=== PATIENT | male | born 1955 | race Caucasian/White ===

== ENCOUNTER → 2019-02-12 06:20 | Outpatient (CLI) | payer OTHER, SELFPAY ==
--- NOTE | 2019-02-11 16:20 | RAD_ITS ---
STUDY: X-RAY - ORBITS REASON FOR EXAM: Male, 64 years old. This study is being performed as a clearance examination for exclusion of orbital metal, prior to the performance of an MRI examination. TECHNIQUE: 2 frontal view(s) of the orbits were obtained. COMPARISON: None. FINDINGS: Normal bilateral orbits without a metallic orbital foreign body. Normal visualized facial bones. Normal paranasal sinuses. The soft tissue structures are unremarkable. RAD/Orbits for Foreign Body IMPRESSION: No demonstrated metallic orbital foreign body. The patient is cleared for an MRI examination. Electronically Signed: Saad Lassiter MD at 16:33 EDT , Service support ,
--- NOTE | 2019-02-12 06:36 | MRI_ITS ---
STUDY: MRI BRAIN WITH AND WITHOUT CONTRAST (ATTENTION INTERNAL AUDITORY CANALS - I.A.C.'s) REASON FOR EXAM: Male, 64 years old. hearing loss left ear. TECHNIQUE: Standardized multiplanar fat and water weighted pulse sequences were obtained. 17 IV Dotarem was administered for the contrast portion of the examination. COMPARISON: None. FINDINGS: Normal bilateral temporal bones. Normal bilateral internal auditory canals. There is 2 mm focus of possible enhancement at the intracanicular 7th and 8th cranial nerve complex (axial image #6 series 13). This is not well seen on other sequences. The right seventh and eighth complex is unremarkable. Normal bilateral cochlea, vestibules and semicircular canals. There is mild cerebral atrophy with widening of the extra-axial spaces and ventricular dilatation. There are multiple white matter hyperintensities, distributed throughout the deep white matter tracts of the cerebral hemispheres, consistent with mild chronic white matter ischemic changes. Normal bilateral basal ganglia. Normal thalami. Normal flow voids within the major intracranial circulation suggesting patency by spin echo criteria. Normal venous enhancement. There is no enhancing intra-axial or extra-axial abnormality. There is no extra-axial fluid accumulation. Normal sella turcica, pituitary gland, infundibular stalk, optic chiasm and hypothalamus. Normal tectal plate and pineal gland. Normal midbrain, hanh and medulla. Normal cerebellum. Normal basal cisterns. There is moderate left maxillary sinus disease MRI/Brain W/WO Contrast IMPRESSION: 2 mm focus of possible enhancement on the left. Vestibular schwannoma is not excluded. Follow-up in 12 months can be obtained. Electronically Signed: Sonu Aguilar MD at 9:24 EDT Tel , Service support ,
== END ==
PROVIDERS: Family Provider Family Medicine; PCP Family Medicine; Referring Provider Otolaryngology; Visit Provider Otolaryngology
DX: H91.22 Sudden idiopathic hearing loss, left ear (principal)
CPT/HCPCS: 70030; 70553; A9575

== ENCOUNTER → 2021-03-24 08:00 | Outpatient (CLI) | payer MEDICARE, BC, SELFPAY ==
--- NOTE | 2021-03-24 | IMM_PTH ---
PATIENT: JERRELL GRAMAJO LOC: [facility] U#:[id number] AGE/SX: 70/M ROOM: RE03/24/[address]: Dr. Sylvester Finch MD : 1955 BED: DIS: SPEC #: [id number] RECD: 03/29/21 12:20 STATUS: LEXI REChristine #: [id number] LESLI: 03/24/21 00:[address]: Sylvester Finch DEPT: IMMUNOHISTOCHEMISTRY RECD BY: Tahir Alcantar ENTERED: 03/29/21 12:22 SP TYPE: IMMUNO OTHR DR: Dr. Maddie Mills MD Tissues: PROSTATE BIOPSY Procedures: 34BE12 (add) P40 (add) 34BE12 (initial) S-100 (add) PHYSICIAN & INSTITUTION [place] [id number] SPECIMEN INFORMATION: Tissue Source: C. Right base, prostate, E. Left mid, prostate Clinical Info: R97.20 Specimen Number: [id number] CPT code: 23869, 30109 x4 METHODOLOGY: Deparaffinized sections of prefer/formalin-fixed tissue or PAP/DQ stained slides are incubated with monoclonal/polyclonal antibodies/oligonucleotide probes. Localization is made via biotin free immunoperoxidase method. Appropriate controls are performed and reacted as expected. Results on target cell population are indicated in the following table: RESULTS: ANTIBODY / CLONE RESULT Block C 34BE12 (34BE12) positive P40 (BC28) positive Block E 34BE12 (34BE12) negative P40 (BC28) negative S-100 (4C4.9) negative These tests were developed and their performance characteristics determined by [facility]. They may not have been cleared or approved by the U.S. Food and Drug Administration. The FDA has determined that such clearance or approval is not necessary. The above immunohistochemical/dualISH markers are ordered and reviewed by the Pathologist. INTERPRETATION: C. Right prostate base, needle core biopsy: -Benign prostatic tissue E. Left mid prostate, core biopsy: -Adenocarcinoma -No evidence of perineural invasion AM:rip 03/30/21
--- NOTE | 2021-03-24 08:00 | PROSBIL_PTH ---
PATIENT: JERRELL GRAMAJO LOC: [facility] U#:[id number] AGE/SX: 70/M ROOM: RE03/24/[address]: Dr. Sylvester Finch MD : 1955 BED: DIS: SPEC #: [id number] RECD: 03/24/21 16:52 STATUS: LEXI RUBÉN #: [id number] LESLI: 03/24/21 08:[address]: Sylvester Finch DEPT: SURGICAL PATHOLOGY RECD BY: Vanessa Turner ENTERED: 03/25/21 09:38 SP TYPE: PROST BX SOREN DR: Dr. Maddie Mills MD Tissues: A - PROSTATE RIGHT B - PROSTATE RIGHT C - PROSTATE RIGHT D - PROSTATE LEFT E - PROSTATE LEFT F - PROSTATE LEFT Procedures: PROSTATE BX HEADER OPERATION: Prostate biopsy PRE-OP DIAGNOSIS: R97.20 TISSUE SUBMITTED: A - Right apex, B - Right mid, C - Right base, D - Left apex, E - Left mid, F - Left base MICROSCOPIC DIAGNOSIS A. Right prostate, apex, core biopsy: Adenocarcinoma [place] grade: 6 (3+3) Maximal length: 2.5mm Number of cores involved: 1/1 Percent of core(s) involved: 15% Perineural invasion: Not Present. B. Right prostate, mid, core biopsy: Focal high-grade PIN. C. Right prostate, base, core biopsy: Focal high-grade PIN. D. Left prostate, apex, core biopsy: Adenocarcinoma [place] grade: 7(3+4) Maximal length: 6mm Number of cores involved: 1/1 Percent of core(s) involved: 50% Perineural invasion: Not Present. E. Left prostate, mid, core biopsy: Adenocarcinoma [place] grade: 7(3+4) Maximal length: 6.5mm Number of cores involved: 2/2 Percent of core(s) involved: 65% Perineural invasion: Not Present. F. Left prostate, base, core biopsy: Benign prostatic tissue. COMMENT C & E. Immunohistochemistry ([id number]) supports the diagnosis. MICROSCOPIC DESCRIPTION Slides are reviewed. GROSS DESCRIPTION A - Received is one container designated prostate, right apex. The specimen consists of one elongated fragment of light khan-white soft tissue measuring 1.5 cm in length and 0.1 cm in diameter. The specimen is totally submitted in one cassette. B - Received is one container designated prostate, right mid. The specimen consists of two elongated fragments of light khan-white soft tissue each measuring 1.5 cm in length and 0.1 cm in diameter. The specimen is totally submitted in one cassette. C - Received is one container designated prostate, right base. The specimen consists of one elongated fragment of light khan-white soft tissue measuring 1.5 cm in length and 0.1 cm in diameter. The specimen is totally submitted in one cassette. D - Received is one container designated prostate, left apex. The specimen consists of two elongated fragments of light khan-white soft tissue each measuring 1 cm in length and 0.1 cm in diameter. The specimen is totally submitted in one cassette. E - Received is one container designated prostate, left mid. The specimen consists of two elongated fragments of light khan-white soft tissue each measuring 1 cm in length and 0.1 cm in diameter. The specimen is totally submitted in one cassette. F - Received is one container designated prostate, left base. The specimen consists of one elongated fragment of light khan-white soft tissue measuring 1.5 cm in length and 0.1 cm in diameter. The specimen is totally submitted in one cassette. / AM:galindo 03/25/2021 TC:0 CPT: G0146
== END ==
PROVIDERS: PCP Family Medicine; Referring Provider Urology; Visit Provider Urology
DX: R97.20 Elevated prostate specific antigen [PSA] (principal)
CPT/HCPCS: 88305; 88341; 88342; G0416

== ENCOUNTER → 2021-04-04 07:20 | Outpatient (CLI) | payer MEDICARE, BC, SELFPAY ==
--- NOTE | 2021-04-04 07:23 | CT_ITS ---
STUDY: CT ABDOMEN AND PELVIS WITH CONTRAST REASON FOR EXAM: Male, 66 years old. NODULAR PROSTATE W/O LOWER UTI SYMPTOMS RADIATION DOSAGE (If Supplied By Facility): CTDIvol = ( 13.20 ) mGy, DLP = ( 1054.49 ) mGycm TECHNIQUE: Transaxial images were obtained from the dome of the diaphragm to the symphysis pubis without oral contrast. IV 100mL Isovue-300 was administered. Sagittal and coronal images were reconstructed. Individualized dose optimization techniques were used for this CT. COMPARISON: None. FINDINGS: The visualized lung bases are unremarkable. Dual-chamber pacemaker seen. There is decreased attenuation of the liver consistent with steatosis. Normal gallbladder and extrahepatic biliary system. Normal spleen. Normal pancreas. Normal bilateral adrenal glands. Normal right kidney. Normal left kidney. There is a small hiatal hernia. Normal small intestine. Normal colon. The appendix is visualized and appears normal. There is diffuse atherosclerotic calcification of the abdominal aorta and its major visceral branches, without a demonstrated aneurysm. Normal inferior vena cava. Normal retroperitoneum. Normal urinary bladder. There is enlargement of the prostate gland. It measures 4.1 cm by 4.6 cm. Within it, there is a 2.4 cm x 3.1 cm rounded nodule of increased density. Normal abdominal wall. There are mild degenerative changes of the visualized lumbar spine. CT/Abdomen/Pelvis WITH Contrast IMPRESSION: Prostatic enlargement with the 2.4 cm x 3.1 some around the nodule of increased density in the central portion of the prostate. Fatty infiltration of the liver. Electronically Signed: Sly Mckeon MD at 11:08 EDT , Service support ,
[2021-04-04 07:36] LABS: CREATININE FINGERSTICK 0.9 mg/dL (0.70-1.30); EGFR FINGERSTICK > 60.0000 mL/min (>60)
== END ==
PROVIDERS: PCP Family Medicine; Referring Provider Urology; Visit Provider Urology
DX: N40.2 Nodular prostate without lower urinary tract symptoms (principal)
CPT/HCPCS: 74177; Q9967

== ENCOUNTER → 2021-04-05 08:25 | Outpatient (CLI) | payer MEDICARE, BC, SELFPAY ==
--- NOTE | 2021-04-05 08:26 | NM_ITS ---
CLINICAL: Male, 66 years old. NODULAR PROSTATE W/OUT SYMPTOMS -- 1997 TESTICULAR CANCER WHOLE BODY NUCLEAR BONE SCAN TECHNIQUE: Following the IV administration of 24 mCi of Tc MDP, whole body bone imaging was performed with a gamma camera following a three hour delay. FINDINGS: There is a normal concentration of radiopharmaceutical throughout the axial and appendicular skeletal system. Focal increased uptake is seen in the left shoulder suggestive of a degenerative change. Minimal increase is also seen at the first carpometacarpal joints of both hands. NM/Bone Scan Whole Body IMPRESSION: No evidence of bony metastasis. Electronically Signed: Sly Mckeon MD at 11:30 EDT , Service support ,
== END ==
PROVIDERS: PCP Family Medicine; Referring Provider Urology; Visit Provider Urology
DX: N40.2 Nodular prostate without lower urinary tract symptoms (principal)
CPT/HCPCS: 78306; A9503

== ENCOUNTER → 2021-05-04 07:22 | Outpatient (CLI) | payer MEDICARE, BC, SELFPAY ==
--- NOTE | 2021-05-04 07:27 | MRI_ITS ---
STUDY: MR PELVIS WITH T WITHOUT CONTRAST REASON FOR EXAM: Male, 66 years old. ELEVATED PROSTATE SPECIFIC ANTIGEN TECHNIQUE: Standardized fat and water weighted pulse sequences were obtained in all 3 orthogonal planes, pre-and post contrast administration. with and without IV 18 cc Dotarem contrast material was administered intravenously for the contrast portion of the examination. COMPARISON: CT 04/04/2021. FINDINGS: Normal urinary bladder. Normal visualized colon. Benign-appearing inguinal lymph nodes. Prostate gland: Prostate gland is diffusely heterogeneous. No discrete enhancing nodules. The anterior fibromuscular stroma and central zone appear intact. The central gland demonstrates normal signal characteristics. Rectum is unremarkable. Levator ani muscle is not disrupted. The distal urethra is surrounded by the low T2 signal intensity muscle which is the external urethral sphincter as noted on the coronal images. The penile bulb is embraced by an intact inferomedial levator ani muscle. No areas of abnormal enhancement. Normal visualized neurovascular bundles. There is no pelvic fluid. There is no pelvic mass lesion or lymphadenopathy. There is diffuse atherosclerotic calcification of the pelvic arteries. Normal osseous structures. Normal abdominal wall. MRI/Pelvis W/WO Contrast IMPRESSION: No evidence of neoplasm on this unenhanced and enhanced MRI of the Prostate. Electronically Signed: Neto Rangel MD at 18:14 EDT , Service support ,
[2021-05-04 07:56] VITALS: BP 169/93; PULSE 75; RESP 16; O2SAT 97
[2021-05-04 08:10] VITALS: BP 157/87; PULSE 75; RESP 75; O2SAT 94
[2021-05-04 08:28] VITALS: BP 157/87; PULSE 75; RESP 75; O2SAT 92
[2021-05-04 08:36] VITALS: BP 159/87; PULSE 75; RESP 16; O2SAT 96
[2021-05-04 08:50] VITALS: BP 148/84; PULSE 75; RESP 16; O2SAT 93
[2021-05-04 08:57] VITALS: PULSE 75; RESP 18; O2SAT 92
== END ==
PROVIDERS: PCP Family Medicine; Referring Provider Urology; Visit Provider Urology
DX: R97.20 Elevated prostate specific antigen [PSA] (principal)
CPT/HCPCS: 72197; A9575

== ENCOUNTER 2021-05-11 05:31 | Day surgery (SDC) | payer MEDICARE, BC, SELFPAY ==
--- NOTE | 2021-05-05 13:13 | EKG12_ITS ---
Test Reason : PREOP Blood Pressure : / mmHG Vent. Rate : 064 BPM Atrial Rate : 064 BPM P-R Int : 172 ms QRS Dur : 194 ms QT Int : 470 ms P-R-T Axes : 066 -75 100 degrees QTc Int : 484 ms Atrial-sensed ventricular-paced rhythm Abnormal ECG Confirmed by SANDY OLIVARES, THEA ([id number]), editor house organ MEELY HUMPHREY ([id number]) on 05/10/2021 6:44:50 AM Referred By: Sylvester Finch Confirmed By:THEA DELGADO MD
--- NOTE | 2021-05-05 13:25 | RAD_ITS ---
STUDY: X-RAY CHEST REASON FOR EXAM: Male, 66 years old. PREOP/HX OF RADIATION THERAPY TECHNIQUE: Frontal and lateral views of the chest COMPARISON: None. FINDINGS: There is a benign calcified granuloma in the right midlung zone. Pacemaker is present in the right upper chest with leads terminating in the right atrium and right ventricle. The lungs are clear and expanded. There is no demonstrated pleural abnormality. Normal size heart. Normal mediastinum and rosalba. Normal visualized pulmonary arteries. Normal visualized aortic arch and descending thoracic aorta. Normal visualized thoracic spine. Normal visualized ribs, clavicles, and shoulders. There is no demonstrated abnormality of the visualized soft tissue structures of the upper abdomen. RAD/Chest PA and Lateral IMPRESSION: Normal x-ray examination of the chest. Electronically Signed: Lesvia Lugo MD at 17:31 EDT Tel , Service support ,
[2021-05-05 14:54] LABS: Hematocrit 39.6 % (40-54); Hemoglobin 14.4 g/dL (13.0-16.5); Mean Corp Hgb Conc 36.4 g/dL (32-36); Mean Corpuscular Hgb 34.1 pg (27.0-32.0); Mean Corpuscular Volume 93.8 fL (80-94); Mean Platelet Vol. 9.5 fl (6.2-12.0); Platelet Count 207 K/mm3 (150-450); RBC Distribution Width CV 12.3 % (11.6-14.6); RBC Distribution Width SD 42.2 fl (35.1-43.9); Red Blood Count 4.22 M/mm3 (4.6-6.2); White Blood Count 8.4 K/mm3 (4.4-11.0)
[2021-05-05 15:17] LABS: Anion Gap 7 (5-15); BUN 16 mg/dL (7-18); BUN/Creat Ratio 22.1 RATIO (10-20); Calcium,Total 8.8 mg/dL (8.5-10.1); Chloride 107 mmol/L (98-107); Creatinine, Serum 0.72 mg/dL (0.70-1.30); EST Glomerular Filtration Rate 115 mL/min (>60); Est Glom Filt Rate - Afr Amer 139 mL/min (>60); Glucose 200 mg/dL (74-106); Sodium Level 137 mmol/L (136-145)
[2021-05-05 15:25] LABS: Hemoglobin A1c 6.8 % (3.8-5.6)
[2021-05-11] VITALS (12 sets, daily range): BP systolic 125–169; BP diastolic 69–94; PULSE 62–90; RESP 16–18; TEMP 36.1–36.6; O2SAT 93–99; BMI 26.6
[2021-05-11] MEDS: Lactated Ringers 1,000 ML 100 ML IV ×2 (06:26→10:30)
[2021-05-11 06:36] LABS: Bedside Glucose 163 mg/dL (70-110)
--- NOTE | 2021-05-11 07:30 | PROST_PTH ---
PATIENT: JERRELL GRAMAJO LOC: [facility] [place] U#:[id number] AGE/SX: 66/M ROOM: RE05/11/[address]: Dr. Sylvester Finch MD : 1955 BED: DIS: 05/11/2021 SPEC #: [id number] RECD: 05/11/21 12:05 STATUS: LEXI REChristine #: [id number] LESLI: 05/11/21 07:[address]: Sylvester Finch DEPT: SURGICAL PATHOLOGY RECD BY: Vanessa Turner ENTERED: 05/11/21 12:40 SP TYPE: PROSTATE OTHR DR: MD Dr. Popeye Rios MD Tissues: A - Lymph node of pelvis, NOS B - Lymph node of pelvis, NOS C - Soft tissues, NOS D - Soft tissues, NOS E - Prostate, NOS Procedures: Surgery Specimen Level IV Surgery Specimen Level V Surgery Specimen Level HEADER OPERATION: Lap robotic prostatectomy PRE-OP DIAGNOSIS: Malignant neoplasm of prostate TISSUE SUBMITTED: A ? Left pelvic lymph node, B ? Right pelvic lymph node, C ? Fat over prostate, D ? Apical margin of prostate, E - Prostate MICROSCOPIC DIAGNOSIS A. Left pelvic lymph node, biopsy: One lymph node, negative for metastatic carcinoma. B. Right pelvic lymph node, biopsy: One lymph node, negative for metastatic carcinoma. C. Fat over prostate: Negative for carcinoma. D. Apical margin of prostate: Positive for prostatic adenocarcinoma. See comment. E. Prostate, radical prostatectomy: Adenocarcinoma. See cancer summary in the comment section. SJ:galindo 05/13/2021 COMMENT D. The tumor shows [place] grade 3+3=6 pattern and measures ~2 mm in greatest dimension. PROSTATE CANCER (RADICAL) SUMMARY: Procedure: Radical Prostatectomy Prostate Size: Weight: 49 gm Size: 4.5 cm transversely, 3.5 cm anterior-posteriorly and 4 cm craniocaudally Histologic type: Acinar adenocarcinoma Histologic grade: grade group 2 (Richfield score 3+4=7) Tumor Quantitation: Estimated percentage of prostate involved by tumor - ~30% Tumor size ? The tumor involves both right and left lobe, apical mid and basal portion of the prostate, predominantly central portion of the specimen. Tumor in the right and left lobe measures approximately 3 x 1.5 x 1.5 cm. Extraprostatic Extension: Not identified Urinary Bladder Neck Invasion: Not identified Seminal Vesicle Invasion: Not identified Lymphvascular Invasion: Not identified Perineural Invasion: Present Margins: Involved by invasive carcinoma Limited (<3 mm) Location of positive margin - apical and anterior margin Rich[place] pattern at positive margin ? pattern 3 Regional Lymph Nodes: Number of lymph nodes involved by carcinoma: 0 Total Number of Lymph Nodes Examined: 2 Treatment Effect: No known presurgical therapy Distant metastasis: Not applicable Additional Pathologic Findings: Focal high-grade prostatic intraepithelial neoplasia (HGPIN). - Chronic inflammation. - Benign prostatic hyperplasia, glandular type Ancillary studies: Not performed PATHOLOGIC STAGE: pT2 pN0 pMx The above summary is in compliance with [employer] [place] [employer] (CAP) Cancer Protocols Checklist and [place] [employer] Committee on Cancer (AJCC), Staging Manual, 8th Ed. Please make reference to previous specimen ([id number]) right prostate, apex, core biopsy with diagnosis of adenocarcinoma and left prostate, apex and mid, core biopsies with diagnosis of adenocarcinoma. Case has been reviewed in consultation with Dr. Cool who concurs with the above diagnosis. IDC:AM MICROSCOPIC DESCRIPTION Slides are reviewed. GROSS DESCRIPTION A - Received in fixative is one container labeled with the patient's name and designated left pelvic lymph node. The specimen consists of an irregular piece of yellow adipose tissue measuring 4 x 2 x 1 cm. One nodule consistent with lymph node is identified. The entire specimen is submitted in two cassettes as follows: 1 ? one bisected lymph node, 2 ? rest of the specimen. / SJ:rg 05/11/21 B - Received in fixative is one container labeled with the patient's name and designated right pelvic lymph node. The specimen consists of a piece of yellow adipose tissue measuring 2 x 2 x 0.5 cm. No obvious lymph node is identified. The specimen is bisected and submitted entirely in one cassette. / SJ:rg 05/11/21 C - Received in fixative is one container labeled with the patient's name and designated fat over prostate. The specimen consists of an irregular piece of yellow adipose tissue measuring 2 x 1.5 x 0.3 cm. The entire specimen is submitted in one cassette. / SJ:rg 05/11/21 D - Received in fixative is one container labeled with the patient's name and designated apical margin of prostate. The specimen consists of two pieces of pink-red soft tissue measuring in aggregate 1 x 0.7 x 0.2 cm. The entire specimen is submitted in one cassette. / :rg 05/11/21 E - Received in fixative is one container labeled with the patient's name and designated prostate. The specimen consists of a radical prostatectomy specimen consisting of prostate and bilateral seminal vesicles. The entire specimen weighs 49 gm. The prostate measures 4.5 cm transversely, 3.5 cm anterior-posteriorly and 4 cm craniocaudally. The right seminal vesicle measures 1 x 1 x 1 cm and right vas deferens measures 2.5 cm in length and 0.5 cm in diameter. The left seminal vesicle measures 3 x 1 x 0.5 cm and the left vas deferens measures 2 cm in length and 0.5 cm in diameter. The prostate is inked as follows: anterior surface - yellow, posterior surface - black, right lateral surface - blue, left lateral surface - green. The bilateral seminal vesicles and vas deferens are inked as follows: posterior surface - black, anterior surface right seminal vesicle and vas deferens - blue and anterior left seminal vesicle and vas deferens - green. Sections do not reveal any obvious mass lesion. [employer] Con[employer] sections are submitted in 20 cassettes as follows: 1 - right seminal vesicle and vas deferens, 2 - left seminal vesicle and vas deferens, 3 - apical margin prostate, enface, 4 & 5 - basal portion of prostate margin, enface, 610 - apical portion prostate, 11-14 - middle portion prostate, 15-20 - basal portion prostate. / :rg 05/12/21 TC:0 CPT: 70543, 57185 x2, 41552 x2
--- NOTE | 2021-05-11 07:35 | HP.PCM_ITS ---
HPI - General HPI Narrative JERRELL GRAMAJO, is a 66 M who presents psa 25, Hanna 7 prostate cancer, palpable nodule on the left plan for left wide dissection, right nerve sparing for high risk prostate cancer. Plan for radical prostatectomy and lymph node dissection. [facility] Medical History (Updated 05/11/21 @ 07:[address] Sylvester Finch MD) Cancer Cardiology follow-up encounter Diabetes Dietary restriction High cholesterol History of echocardiogram History of heart attack History of stress test Hx of cardiac pacemaker Hypertension Loss of consciousness Non-smoker Wears glasses Home Medications Vitamin C 1 g PO DAILY 05/04/21 [History Last Taken 05/11/21] atorvastatin 20 mg PO QHS 05/04/21 [History Last Taken 05/11/21] cholecalciferol (vitamin D3) [Vitamin D3] 125 mcg PO DAILY 05/04/21 [History Last Taken 05/11/21] glipizide 5 mg PO BID 05/04/21 [History Last Taken 05/11/21] losartan 25 mg PO DAILY 05/04/21 [History Last Taken 05/11/21] magnesium 250 mg PO DAILY 05/04/21 [History Last Taken 05/11/21] metformin 500 mg PO BID 05/04/21 [History Last Taken 05/11/21] metoprolol tartrate 25 mg PO BID 05/04/21 [History Last Taken 05/11/21] ibxpxft-flmj-vbaen-oreg-capryl 1 cap PO DAILY 05/04/21 [History Last Taken ] vitamin A-vitamin C-vitamin E 1 cap PO DAILY 05/04/21 [History Last Taken 05/11/21] zinc 15 mg PO DAILY 05/04/21 [History Last Taken 05/11/21] ciprofloxacin HCl [Cipro] 500 mg PO BID #20 tab 05/11/21 [Rx Last Taken Unknown] docusate sodium [Colace] 100 mg PO BID #20 cap 05/11/21 [Rx Last Taken Unknown] oxycodone-acetaminophen 1 tab PO Q6H PRN 7 Days #14 tab 05/11/21 [Rx Last Taken Unknown] Allergy/AdvReac Type Severity Reaction Status Date / Time No Known Allergies Allergy Verified 05/11/21 05:56 Surgical History (Updated 05/04/21 @ 13:25 by Lynn Guallpa) History of cardiac catheterization Hx laparoscopic cholecystectomy Hx of heart artery stent Hx of left cataract extraction Hx of lumbar discectomy Hx of removal of testicle Hx of repair of right rotator cuff Hx of right cataract extraction Social History Smoking Status: Never smoker Vital Signs Vital Signs Vital Signs: 05/11/21 05:58 05/11/21 06:02 Temperature 97.4 F L Temperature Source Temporal Pulse Rate 62 Respiratory Rate 18 Respiratory Pattern Normal Blood Pressure 125/69 H Blood Pressure Mean 87 Blood Pressure Source Monitor Blood Pressure Position Semi-Fowlers Blood Pressure Location Left Arm Pulse Ox 99 Oxygen Delivery Method Room Air Weight Weight: 84.2 kg Body Mass Index (BMI) 26.6 Physical Exam Const alert and oriented x3 General Appearance: cooperative HEENT normocephalic, head/scalp atraumatic, EAC's normal and TM's normal bilaterally Eyes PERRL and EOMs intact bilaterally Pupil: sluggish Neck no lymphadenopathy, supple and no JVD General: trachea midline Lymph Lymphatic: no lymphadenopathy noted, lymphedema and lymphadenopathy Resp normal respiratory effort, normal air movement and clear to auscultation bilaterally Cardio regular rate, regular rhythm and peripheral pulses 2+ throughout GI soft to palpation, non-tender and non-distended Extremity normal capillary refill and no clubbing, cyanosis or edema General Extremity: no tenderness to palpation of joints or extremities Skin no rashes or lesions noted General Skin Exam: turgor normal Lesions: no lesions Rashes: no rashes Neuro CN's II-XII intact bilaterally Speech: speech normal Motor Exam: strength 5/5 throughout; Negative for general weakness Psych thought process normal, cooperative and affect normal Appearance: appropriate Results Lab / Micro Data Result Diagrams: 05/05/21 13:41 05/05/21 13:41 Labs: Laboratory Results - last 24 hr 05/11/21 06:08: POC Glucose 163 H Assessment & Plan Assessment/Plan (1) Malignant neoplasm of prostate:
--- NOTE | 2021-05-11 07:36 | PCM.DC ---
Discharge Instructions Diet Discharge Diet: Light diet - advance as tolerated and Soft diet Activity Discharge Activity: May Not Drive (while taking narcotic pain medications.) and May Shower Lifting Restrictions: No lifting, okay for stairs, okay to walk, no driving. Dressing / Incision Call your doctor if your incision/area has: Continuous Slow Oozing, Increased Pain/ Swelling and Increased Redness Call your doctor if you observe: Fever of 101 or Higher Catheter: Riggs to leg bag and Riggs to large bag Drain: [place] Follow Up Care Please Follow Up With: Sylvester Finch MD When: Call [phone] for an appointment Test Results: Test results from this visit will be discussed in further detail at your follow-up appointment, if applicable. Discharge Plan Admission Primary Reason for Your Visit: Radical Prostatectomy Attending Provider: Sylvester Finch Primary Care Provider: Popeye Carvalho Consulting Providers: Jorge Luis Melendez Instructions Patient Instructions: Radical Prostatectomy Dc Discharge Orders/Prescriptions Prescriptions: New ciprofloxacin HCl [Cipro] 500 mg tablet 500 mg PO BID Qty: 20 RF: 0 oxycodone-acetaminophen 5-325 mg tablet 1 tab PO Q6H PRN (Reason: pain) 7 Days Qty: 14 RF: 0 docusate sodium [Colace] 100 mg capsule 100 mg PO BID Qty: 20 RF: 0 Continued zinc 15 mg Tablet 15 mg PO DAILY RF: 0 metformin 500 mg Tablet 500 mg PO BID RF: 0 atorvastatin 20 mg Tablet 20 mg PO QHS RF: 0 Vitamin C Powder 1 g PO DAILY RF: 0 losartan 25 mg Tablet 25 mg PO DAILY RF: 0 magnesium 250 mg Tablet 250 mg PO DAILY RF: 0 glipizide 5 mg Tablet 5 mg PO BID RF: 0 vitamin A-vitamin C-vitamin E Capsule 1 cap PO DAILY RF: 0 metoprolol tartrate 25 mg Tablet 25 mg PO BID RF: 0 cholecalciferol (vitamin D3) [Vitamin D3] 125 mcg (5,000 unit) Tablet 125 mcg PO DAILY RF: 0 ewkotdv-usbd-bytir-oreg-capryl 100 mg-150 mg- 50 mg-150 mg Capsule 1 cap PO DAILY RF: 0 Discontinued clopidogrel [Plavix] 75 mg Tablet 75 mg PO DAILY RF: 0 aspirin [Aspir-81] 81 mg Tablet,Delayed Release (Dr/Ec) 81 mg PO DAILY RF: 0 Referrals / Follow Up: Popeye Carvalho MD [Primary Care Provider] - Sylvester Finch MD [STAFF PHYSICIAN] - Disposition Disposition (needs filled in before D/C Order can be placed): Home, Self Care
[2021-05-11] MEDS: Cefazolin 2 GM in 0.9% Normal Saline 100 ML IV (07:49)
[2021-05-11] MEDS: Bupivacaine Mpf 0.5% 30 ML VIAL (11:00)
--- NOTE | 2021-05-11 11:22 | PCM.OPRPT ---
Report of Operation Date of Procedure: 05/11/21 Pre-Operative Diagnosis: PROSTATE CANCER Post-Operative Diagnosis: SAME Surgery/Procedure Performed:: LAPAROSCOPIC, ROBOTIC ASSISTED, RADICAL PROSTATECTOMY WITH NERVE SPARING AND BILATERAL PELVIC LYMPHNODE DISSECTION Description of Surgical Findings:: Patient presented to the hospital for treatment of his prostate cancer with radical prostatectomy. In the preoperative setting we discussed the options of management for his prostate cancer including active surveillance, radiation treatments, radioactive seeds, and radical robotic prostatectomy. We discussed the side effects of surgery including the potential to lose erections. We discussed the potential to have bladder control problems with stress incontinence which can be temporary or permanent. We discussed the risk of the surgery including the risk of general anesthetic, risk of bleeding, risk of infection, and risk of formation of hernia either incisional hernia or inguinal hernia. After long discussion with the patient the preoperative setting and also reviewed this in the preop area patient signed the consent form and we proceeded with a radical prostatectomy. Patient was taken back to the operating room he was identified, time out procedure was performed and he was placed supine on the table he underwent general anesthesia with intubation. The abdomen was shaved prepped and draped in usual sterile fashion as well as the penis and testicles. A 16 American catheter was placed into the bladder with clear return of urine. I then made an incision in the umbilicus and dissected down to the fascia advance a Veress needle into the peritoneal cavity and insufflated the peritoneal cavity with CO2 gas. I then placed a 12 mm trocar above the umbilicus. I then visualized the placement of the rest of the trochars, I placed a right arm robotic trocar, and air seal trocar, a suction port 5 mm trocar. And on the left side I placed 2 robotic arms. Once all the trochars were in placed the patient was put in steep Trendelenburg. And the robot was docked the arms were docked and then I placed the 0 degree camera through the robotic arm and also used a 30 degree camera during certain parts of the case. I used scissors in the right arm, prograsp in the third arm, and a bipolar in the second arm. Initial dissection was to free the sigmoid colon off the lateral wall this was done by meticulously dissecting off the peritoneum and the sigmoid colon off the left lateral wall. This then allowed the prograsp to retract the sigmoid colon out of the pelvis. I then went below the bladder and identified the vas deferens incised the peritoneum over the vas deferens and traced the vas deferens below the bladder to the prostate and identified the right and left vasa deferens. Below behind the vas deferens then the seminal vesicles were identified. I then dissected the seminal vesicle free using pinpoint electrocautery and then we identified the other seminal vesicle and then dissected this using pinpoint electrocautery I then elevated the vas deferens and several vesicles off the prostate and was able to sweep the Denonvilliers' fascia off the prostate posteriorly all the way up to the apex of the prostate. Working laterally I made sure I went as lateral as possible to sweep the Denonilliers' fascia off the posterior aspect of the prostate and worked my way back, I then transected the vas deferens and the left and right side the seminal vesicles were then dissected free. And then I pulled out of the pelvis. At this point the bladder was dropped creating the space of Retzius with the bladder on traction with the fourth arm. Using electrocautery I dissected in the anterior peritoneal fascia and then created the space of Retzius dissecting towards the prostate. The pelvic lymph node dissection was then performed both on the left and the right pelvic lymph nodes the nodes that were taken on the right side extended from the right iliac artery lateral pelvic sidewall up to the junction of the artery and the lymph nodes and down to the obturator nerve and then also below the cam milling machine operator nerve all the lymph nodes were removed during to remove those lymph nodes we used clips and electrocautery to control small blood vessels and also the control lymphatic. I then went to the left side and again did an extensive lymph node dissection starting of the left iliac artery extending the left iliac vein on the lateral sidewall down to the obturator nerve and the left side beyond the cam milling machine operator nerve down further behind it cleaning out all the lymphatic tissue all this tissue was sent off as a specimen we use clips and electrocautery during the dissection. At the end we cleaned out all the lymphatic tissue on the right pelvic wall and no lymphatic tissue in the left pelvic wall. The prostate was then cleaned of the fat over the prostate and the fourth arm was used to retract the bladder and place traction. I then identified the endopelvic fascia that was overlying the prostate on the right side I incised endopelvic fascia and wwept the levator muscles off the prostate all the way to the apex on the right side, I then worked my way anterior to the prostate then transected to the puboprostatic ligament and the underlying dorsal vein complex was not injured. I then went to the other side and identified the endopelvic fascia in the left side incised in a fashion the left side and swept the levator muscles off the prostate on the left side all the way up to the apex the puboprostatic ligament on the left side was then dissected and transected I then freed up the fascia overlying the dorsal vein complex. I then used the prograsp to encircled the dorsal vein complex with the prograsp and then switched over to the right and left needle driver sales and suture ligated the dorsal vein complex above the prograsp. The prograsp was then placed back in the bladder and put back on traction I then identified the junction between the bladder and the prostate and dissected down between the bladder and the prostate untilI came across the catheter we then dissected posteriorly to the bladder and prostate to free the prostate and the bladder off each other and the muscles between the bladder and the prostate was then cauterized to free up the bladder. I then went on top of the prostate and identified the endopelvic fascia on top of the prostate this was incised all the way to the apex and then we swept the endopelvic fascia off the prostate laterally and then identified the plane between endopelvic fascia and the prosthetic pseudocapsule and swept the fascia laterally until reaching the course of the neurovascular bundles and then released the neurovascular bundles off the prostate laterally all the way back in a retrograde fashion back to the junction of the pedicles then the prostate was placed on traction with the fourth arm pulling the prostate laterally identified the pedicle to the prostate between the seminal vesicles and the and the neurovascular bundle and this was taken using sequential small hemolocks. After the pedicle was taken the I then dissected underneath the prostate sweeping the neurovascular bundle off the prostate we able to follow the nice smooth plane between the neurovascular bundle and the pseudocapsule all the way to the apex once this was identified we swept this up all the way up to the apex and there was perfect nerve sparing on the right side. Then went to the left side the prostate identified the endopelvic fascia over the left side of the prostate I incised the endopelvic fascia all the way to the apex and then swept this off laterally I then released the neurovascular bundles on the left side of the prostate sweeping him off the prostate laterally I then elevated the prostate up up with the prostate and traction identified the pedicle to the prostate on the left side and then the pedicles taken with sequential Hem-o-jorge clips I then was able to dissected the neurovascular bundle off the left posterior aspect the prostate this was a perfect dissection all the way up on the left side following the pseudocapsule all the way up the left side until we reached the apex of the prostate. After the both the neurovascular bundles has been swept off the posterior to the prostate I then went above and transected the dorsal vein complex there was minimal to no bleeding but then dissected down to the urethra and circumfencial dissected around the urethra I then switched the right and left arm with the needle drivers and I suture-ligated the dorsal vein complex again just to ensure that there was no bleeding from the dorsal vein complex. I then transected through the urethra with scissors and the prostate was then freed and released off the prostate bed and put an Endo Catch bag. At this point the bladder neck was reconstructed and then an anastomosis was performed between the prostate and the bladder with a 3 oh V-Loc stitch in a running fashion starting from the bladder neck at the 6 o'clock position working to the 12 o'clock position with continuous stitches to complete a perfect anastomosis between the bladder and the prostate. I then placed a new catheter into the bladder, an 18 American [place] tip catheter flushed the bladder and there was no leakage from the anastomosis I put 10 cc in the balloon and pulled it up pulled back gently. I then ensured that there was no bleeding from the dorsal vein complex no bleeding from the neurovascular bundles FloSeal was placed as necessary once hemostasis was ensured and adequate then I placed the bladder back in position in the pelvis the prostate was exchanged to the camera port I closed the air seal port with a 10 12 Je Caicedo stitch. And the extracted the prostate through the umbilicus. The robot was undocked all the ports were removed under direct visualization then closed the extraction site with 0 Vicryl with a CT1 needle once the extraction site was closed. I then closed all the incision with subcuticular stitches with 4-0 Monocryl and then bandages were placed on the incisions catheter was flushed to make sure it was draining well there was no clots and it was crystal clear patient's anesthetic was reversed he was extubated and taken back to the PACU in stable condition all the needles and sponges and instruments were accounted for. Blood loss was minimal and the drain was a 18 American Stock catheter. No other surgical drain was left. I was present during the entire case. Surgeon: MARCO Type of Anesthesia: General Drains: 20 FR STOCK Admit VTE Documentation VTE Present on Admission: No VTE Mechan Device Prophylaxis: SCD's
[2021-05-11 11:40] LABS: Bedside Glucose 234 mg/dL (70-110)
[2021-05-11] MEDS: Ketorolac 30 MG/ML Syringe IV (11:58)
--- NOTE | 2021-05-11 12:03 | EKG12_ITS ---
Test Reason : POST OP Blood Pressure : / mmHG Vent. Rate : 068 BPM Atrial Rate : 068 BPM P-R Int : 166 ms QRS Dur : 204 ms QT Int : 492 ms P-R-T Axes : 047 -74 105 degrees QTc Int : 523 ms Atrial-sensed ventricular-paced rhythm Abnormal ECG Confirmed by CELSO OLIVARES, RONALD ([id number]), scientific publications editor EMELY HUMPHREY ([id number]) on 05/18/2021 9:54:41 AM Referred By: Sylvester Finch Confirmed By:RONALD HOUSTON MD
[2021-05-11 12:11] LABS: Hematocrit 42.3 % (40-54); Hemoglobin 14.5 g/dL (13.0-16.5); Mean Corp Hgb Conc 34.3 g/dL (32-36); Mean Corpuscular Hgb 33.2 pg (27.0-32.0); Mean Corpuscular Volume 96.8 fL (80-94); Mean Platelet Vol. 9.7 fl (6.2-12.0); Platelet Count 200 K/mm3 (150-450); RBC Distribution Width CV 12.4 % (11.6-14.6); Red Blood Count 4.37 M/mm3 (4.6-6.2)
[2021-05-11 12:18] LABS: Anion Gap 7 (5-15); BUN 17 mg/dL (7-18); BUN/Creat Ratio 17.6 RATIO (10-20); Calcium,Total 8.5 mg/dL (8.5-10.1); Chloride 106 mmol/L (98-107); Creatinine, Serum 0.97 mg/dL (0.70-1.30); EST Glomerular Filtration Rate 83 mL/min (>60); Est Glom Filt Rate - Afr Amer 100 mL/min (>60); Estimated Creatinine Clearance 77.35 ml/min; Glucose 232 mg/dL (74-106); Potassium 5.7 mmol/L (3.5-5.1); Sodium Level 137 mmol/L (136-145)
[2021-05-11 12:24] LABS: Troponin-I HS 6 pg/mL (3.0-78.0)
[2021-05-11] MEDS: Lactated Ringers 1,000 ML 150 ML IV (12:52)
== END 2021-05-11 16:05 | disposition home or self-care (01) ==
LOC: SDC 05:32 → AC 05:32
PROVIDERS: Anesthesiology; PCP Family Medicine; Referring Provider Urology; Visit Provider Urology
PROC: 0VT04ZZ Resection of Prostate, Percutaneous Endoscopic Approach (ICD-10-PCS; CPT 55866; principal; 2021-05-11 07:10)
DX: C61 Malignant neoplasm of prostate (principal); R94.31 Abnormal electrocardiogram [ECG] [EKG]; E11.9 Type 2 diabetes mellitus without complications; E78.00 Pure hypercholesterolemia, unspecified; I25.2 Old myocardial infarction; I10 Essential (primary) hypertension; Z79.899 Other long term (current) drug therapy; Z79.02 Long term (current) use of antithrombotics/antiplatelets; Z79.82 Long term (current) use of aspirin; Z79.84 Long term (current) use of oral hypoglycemic drugs; Z95.0 Presence of cardiac pacemaker
CPT/HCPCS: 55866; 36415; 71046; 80048; 82962; 83036; 84484; 85027; 86850; 86900; 86901; 88305; 88307; 88309; 93005; J7120; J2405

== ENCOUNTER → 2021-07-04 10:23 | Outpatient (CLI) | payer MEDICARE, BC, SELFPAY ==
[2021-07-04 11:24] LABS: PSA,Total - Annual Screen < 0.01 ng/mL (0.00-4.00)
== END ==
PROVIDERS: PCP Family Medicine; Referring Provider Urology; Visit Provider Urology
DX: C61 Malignant neoplasm of prostate (principal); Z48.816 Encounter for surgical aftercare following surgery on the genitourinary system; Z12.5 Encounter for screening for malignant neoplasm of prostate
CPT/HCPCS: 36415; 84153; G0103

== ENCOUNTER 2021-08-18 11:37 | Outpatient (CLI) | payer MEDICARE, BC, SELFPAY ==
[2021-08-18 13:27] LABS: PSA,Total- Diagnostic 0.02 ng/mL (0.0-4.0)
== END 2021-08-18 23:59 | disposition short-term general hospital (02) ==
PROVIDERS: Referring Provider Urology; Visit Provider Urology
DX: C61 Malignant neoplasm of prostate (principal)
CPT/HCPCS: 36415; 84153

== ENCOUNTER → 2021-11-14 | Outpatient (CLI) | payer MEDICARE, BC, SELFPAY ==
[2021-11-14 11:03] LABS: PSA,Total- Diagnostic < 0.01 ng/mL (0.0-4.0)
== END | disposition home or self-care (01) ==
LOC: LAB 09:38
PROVIDERS: Referring Provider Urology; Visit Provider Urology
DX: C61 Malignant neoplasm of prostate (principal)
CPT/HCPCS: 36415; 84153

== ENCOUNTER → 2022-03-16 | Outpatient (CLI) | payer MEDICARE, BC, SELFPAY ==
[2022-03-16 13:11] LABS: PSA,Total- Diagnostic 0.01 ng/mL (0.0-4.0)
== END | disposition home or self-care (01) ==
PROVIDERS: Referring Provider Registered Nurse; Visit Provider Registered Nurse
DX: C61 Malignant neoplasm of prostate (principal)
CPT/HCPCS: 36415; 84153

== ENCOUNTER → 2022-09-14 | Outpatient (CLI) | payer MEDICARE, BC, SELFPAY ==
[2022-09-14 13:59] LABS: PSA,Total- Diagnostic 0.02 ng/mL (0.0-4.0)
== END | disposition home or self-care (01) ==
PROVIDERS: Referring Provider Urology; Visit Provider Urology
DX: C61 Malignant neoplasm of prostate (principal)
CPT/HCPCS: 36415; 84153

== ENCOUNTER → 2023-03-13 | Outpatient (CLI) | payer MEDICARE, BC, SELFPAY ==
[2023-03-13 14:35] LABS: PSA,Total- Diagnostic 0.03 ng/mL (0.0-4.0)
== END | disposition home or self-care (01) ==
PROVIDERS: Referring Provider Urology; Visit Provider Urology
DX: C61 Malignant neoplasm of prostate (principal)
CPT/HCPCS: 36415; 84153

== ENCOUNTER → 2023-09-24 | Outpatient (CLI) | payer MEDICARE, BC, SELFPAY ==
[2023-09-24 12:14] LABS: PSA,Total- Diagnostic 0.07 ng/mL (0.0-4.0)
== END | disposition home or self-care (01) ==
LOC: LAB 11:17
PROVIDERS: Referring Provider Urology; Visit Provider Urology
DX: C61 Malignant neoplasm of prostate (principal)
CPT/HCPCS: 36415; 84153

== ENCOUNTER → 2024-04-16 | Outpatient (CLI) | payer MEDICARE, BC, SELFPAY ==
[2024-04-16 16:28] LABS: PSA,Total- Diagnostic 0.08 ng/mL (0.0-4.0)
== END | disposition home or self-care (01) ==
LOC: LAB 14:00
PROVIDERS: Referring Provider Urology; Visit Provider Urology
DX: R97.21 Rising PSA following treatment for malignant neoplasm of prostate (principal)
CPT/HCPCS: 36415; 84153

== ENCOUNTER → 2024-10-14 | Outpatient (CLI) | payer MEDICARE, BC, SELFPAY | END | disposition home or self-care (01) | LOC: LAB 13:32 | PROVIDERS: Referring Provider Urology; Visit Provider Urology | DX: R97.21 Rising PSA following treatment for malignant neoplasm of prostate (principal) | CPT/HCPCS: 36415; 84153 ==

== ENCOUNTER → 2025-04-14 | Outpatient (CLI) | payer MEDICARE, BC, SELFPAY ==
[2025-04-14 10:59] LABS: PSA,Total- Diagnostic 0.11 ng/mL (0.00-4.00)
== END | disposition home or self-care (01) ==
LOC: LAB 09:24
PROVIDERS: Referring Provider Urology; Visit Provider Urology
DX: R97.21 Rising PSA following treatment for malignant neoplasm of prostate (principal)
CPT/HCPCS: 36415; 84153